=== PATIENT | female | born 1965 | race Caucasian/White ===

== ENCOUNTER → 2016-09-19 | Outpatient (CLI) | payer OTHER | LOC: US 14:00 | DX: N18.2 Chronic kidney disease, stage 2 (mild) (principal); N26.1 Atrophy of kidney (terminal); R93.421 Abnormal radiologic findings on diagnostic imaging of right kidney ==

== ENCOUNTER → 2021-07-07 | Outpatient (CLI) | payer OTHER | LOC: EXRD 11:21 | DX: N18.31 Chronic kidney disease, stage 3a (principal) | CPT/HCPCS: 76775 ==